=== PATIENT | male | born 1985 | race Caucasian/White ===

== ENCOUNTER 2018-01-07 21:48 | Emergency (ER) | payer MEDICAID ==
[~2018-01-07] VITALS: Ht 182.9 cm; Wt 81.6 kg
--- NOTE | 2018-01-07 21:58 | NUR ---
called pt in wr, no response
[2018-01-07 22:51] VITALS: BP 140/78
[2018-01-07] MEDS ORDERED: TDAP [DIPH/PERTUSSIS/TET] 0.5 ML VIAL IM ONE ×2 (23:30→23:39)
[2018-01-07] MEDS ORDERED: IBUPROFEN 400 MG TABLET PO ONE (23:30)
[2018-01-07] MEDS ORDERED: IBUPROFEN 400 MG TABLET ONE (23:39)
== END 2018-01-08 00:20 | disposition home or self-care (01) ==
LOC: ER 21:51
DX: S50.12XA Contusion of left forearm, initial encounter (principal); Y00.XXXA Assault by blunt object, initial encounter; Y93.89 Activity, other specified; Y92.89 Other specified places as the place of occurrence of the external cause; Y99.8 Other external cause status
CPT/HCPCS: 73090-TC; 90715; A4606; Z7610